=== PATIENT | female | born 1955 ===

== ENCOUNTER 2024-04-11 06:11 | Inpatient (IN) | payer MEDICARE, OTHER, SELFPAY ==
--- NOTE | 2024-03-13 08:42 | CM ---
Addendum entered by Merline Bartlett 04/09/24 08:55:
Spoke again with patient. She has arranged for someone to stay with her for four days. VN services were reviewed and she continues to select [facility].
Original Note:
Patient is scheduled for an elective L TKR on 04/11/24. Spoke with patient prior to surgery via telephone. Introduced role of Orthopedic Navigator. Patient reports that she lives alone in a one story home. There is one step to enter. She currently
functions independently. She has a rolling walker, cane, shower bench and raised toilet seat. She has had VN services through [facility]. PCP is Laurie Santana NP.
Discussed orthopedic program and post surgical plans. Reviewed anticipated length of stay and that goal is for her to return home at discharge. Also reviewed outpatient PT. Patient is in agreement with tentative plan but will not have transportation
for outpatient PT. She will need VN services and selects [facility]. She is not sure if anyone will stay with her but does have people who can stop by during the day.
Patient will complete online education.
Plan: Orthopedic Navigator will remain available to assist with the care of patient and will reassess discharge needs after surgery.
[2024-03-23 12:12] VITALS: BMI 39.4
[2024-03-23 13:56] LABS: Hematocrit 35.7 % (37.0-47.0); Hemoglobin 11.4 g/dL (12.0-16.0); Mean Corp Hgb Conc. 31.9 g/dL (33.0-37.0); Mean Corpuscular Hgb 30.1 pg (27.0-31.0); Mean Corpuscular Volume 94.2 fL (81.0-99.0); Mean Platelet Volume 10.9 fL (7.4-10.4); Platelet Count 327 10^3/uL (130-400); Red Blood Cell Count 3.79 10^6/uL (4.20-5.40); Red Cell Dist. Width 14.5 % (11.5-14.5); White Blood Cell Count 11.8 10^3/uL (4.8-10.8)
[2024-03-23 14:10] LABS: ALT (SGPT) < 10 U/L (0-35); AST (SGOT) 18 U/L (14-36); Albumin 4.1 g/dl (3.5-5.0); Alkaline Phosphatase 77 U/L (38-126); Blood Urea Nitrogen 38 mg/dl (7-17); Calcium 10.2 mg/dl (8.4-10.2); Carbon Dioxide 25 mmol/L (22-30); Chloride 102 mmol/L (98-107); Estimated Creatinine Clearance 31 ml/min; Glucose 118 mg/dl (70-99); Potassium 4.1 mmol/L (3.5-5.1); Sodium 138 mmol/L (135-145); Total Bilirubin 1.2 mg/dl (0.2-1.3); Total Protein 6.7 g/dl (6.3-8.2); eGFR 40.22
[2024-03-23 16:47] VITALS: BMI 39.4
[2024-03-24 09:41] LABS: Glycohemoglobin (HgbA1c) 6.2 % (4.0-5.6)
[2024-04-11] VITALS (10 sets, daily range): BP systolic 109–147; BP diastolic 55–80; PULSE 64; O2SAT 95; BMI 39.4
[2024-04-11 06:38] LABS: Glucose - Point of Care 123 mg/dl (70-99)
[2024-04-11] MEDS: NORMOSOL-R 1000 IV (06:45)
[2024-04-11] MEDS: TYLENOL 650 MG PO ×5 (06:45→23:31)
[2024-04-11] MEDS: CELEBREX 200 MG PO (06:45)
[2024-04-11] MEDS: NSS 1000 IV (08:53)
[2024-04-11] MEDS: ROXICODONE 5 MG PO (08:56)
--- NOTE | 2024-04-11 09:44 | PTCARENOTE ---
0930: Patient arrived to 2S. Full head to toe assessment completed. B/L LE neurovascular assessment completed. L knee aquacell intact with a small amount of drainage. IVF running per order. Call ricci within reach and bed in lowest position. Patients
son at bedside.
[2024-04-11 09:45] LABS: Glucose - Point of Care 128 mg/dl (70-99)
[2024-04-11] MEDS: NOVOLOG FLEXPEN-MODERATE RESISTANCE SC (10:23)
[2024-04-11] MEDS: ORETIC 12.5 MG PO (10:31)
[2024-04-11] MEDS: DIOVAN 80 MG PO (10:31)
[2024-04-11] MEDS: PROTONIX 40 MG PO (10:31)
[2024-04-11] MEDS: DILAUDID 0.5 MG IV (10:36)
[2024-04-11] MEDS: CLARITIN 10 MG PO (12:27)
[2024-04-11] MEDS: ZETIA 10 MG PO (12:28)
[2024-04-11 12:51] LABS: Glucose - Point of Care 165 mg/dl (70-99)
[2024-04-11] MEDS: NOVOLOG FLEXPEN-MODERATE RESISTANCE 1 UNITS SC (13:02)
[2024-04-11] MEDS: ROXICODONE 10 MG PO (13:03)
--- NOTE | 2024-04-11 15:06 | W.PN.ORTHO ---
Today's Communication / Plan
-
D/c when clinically stable.
Assessment
.
Distal Motor Intact: Yes
Dressing:
Scant areas of incisional bleeding noted - will monitor.
Assessment:
L knee OA s/p L TKA w/ Dr Mccollum 04/11/24
DVT prophylaxis - Eliquis at modified dosing, b/l venous compression devices
- Will resume home Eliquis dosing on POD 3 if hemodynamically stable
Left knee and ankle pain - ankle pain felt to be musculoskeletal as it reportedly improves w/ repositioning
- Switch PO Oxycodone to PO Dilaudid prn
- Add Gabapentin TID
- Add lidocaine cream
- Monitor
HTN - + parameters - monitor BP
Small, nonocclusive pulmonary embolism, left popliteal and peroneal vein non-occlusive thrombus, and left posterior tibial vein occlusive thrombus, 01/2022
Recurrent pulmonary embolism with associated syncope, 06/2023; on chronic Eliquis
- IVC filter placed by heme 1 week prior
- Eliquis to be resumed as stated above
- Frequent and early ambulation as tolerated. Venous compression devices at ALL times while in bed
- Plasma flow devices HIGHLY advised for outpatient use
Chronic kidney disease stage 3 - minimize nephrotoxins
Non-insulin dependent diabetes, A1c 6.2 - monitor BS
- + SSI
- May resume Mounjaro upon d/c
- Would benefit from Cefadroxil upon d/c
GERD - continue PPI therapy
Ambulatory dysfunction - on fall precautions
Chronic, multifactorial anemia - non-invasive hgb in AM
- Continue Vit B12
Hyperlipidemia
Right bundle branch block
Chronic peripheral edema
Chronic cough secondary to postnasal drip
Chronic low back pain
Hypothyroidism
History of recurrent UTIs
Osteoporosis
Insomnia
Mild leukocytosis
Obesity, BMI 39.4
Plan
.
Surgery / Date: L TKA w/ Dr Mccollum 04/11/24
DVT Prophylaxis: Other (Eliquis )
Activity:
Out of bed.
PT/OT
Discharge Plan: Home w/ VN
Subjective
.
.:
Patient examined resting in bed.
Reports significant left knee and ankle pain - pain meds to be adjusted.
Denies any other new complaints.
Vital Signs and Labs
.
Vital Signs and Labs:
Lab Results
03/23/24 12:09
03/23/24 12:09
Temp Pulse Resp BP Pulse Ox
97.3 F 66 18 143/80 95
04/11/24 11:12 04/11/24 11:12 04/11/24 11:12 04/11/24 11:12 04/11/24 11:12
Physical Exam
-
HEENT: No pallor, cyanosis, or jaundice. Throat clear.
NECK: Supple. No JVD.
RESPIRATORY: Lungs clear to auscultation.
CVS: S1, S2 normal. RRR.�
ABDOMEN: Soft, non-tender. No distension. Obese.
EXTREMITIES: Strength equal. No calf pain w/ palpation of calves, b/l dorsiflexion. Calves soft.
C T TECH: AOx3. No focal deficits. loom checker grossly intact
[2024-04-11] MEDS: DILAUDID 2 MG PO (15:57)
[2024-04-11] MEDS: NEURONTIN 200 MG PO ×2 (15:57→22:17)
[2024-04-11] MEDS: ANCEF 5 IV ×2 (15:58→23:47)
[2024-04-11] MEDS: LMX 4 1 APPLIC TOPICAL (16:39)
[2024-04-11 16:51] LABS: Glucose - Point of Care 332 mg/dl (70-99)
[2024-04-11] MEDS: NOVOLOG FLEXPEN-MODERATE RESISTANCE 7 UNITS SC (17:00)
[2024-04-11] MEDS: FLOMAX 0.400000000000000022 MG PO (20:07)
[2024-04-11] MEDS: COLACE 100 MG PO (20:07)
[2024-04-11] MEDS: SENOKOT 17.1999999999999993 MG PO (20:07)
[2024-04-11] MEDS: ELIQUIS 2.5 MG PO (20:07)
[2024-04-11] MEDS: BACTROBAN 2% OINTMENT 1 APPLIC NASAL (20:14)
[2024-04-11 21:54] LABS: Glucose - Point of Care 237 mg/dl (70-99)
[2024-04-11] MEDS: CRESTOR 40 MG PO (22:19)
[2024-04-11] MEDS: DILAUDID 4 MG PO (22:30)
[2024-04-12 03:15] VITALS: BP 109/52
[2024-04-12] MEDS: TYLENOL 650 MG PO ×3 (04:17→12:32)
[2024-04-12] MEDS: SYNTHROID 88 MCG PO (05:00)
[2024-04-12 07:20] VITALS: BP 112/57
[2024-04-12 07:59] LABS: Glucose - Point of Care 164 mg/dl (70-99)
[2024-04-12] MEDS: BACTROBAN 2% OINTMENT 1 APPLIC NASAL (08:26)
[2024-04-12] MEDS: NOVOLOG FLEXPEN 2 UNITS SC ×2 (08:27→12:29)
[2024-04-12] MEDS: NOVOLOG FLEXPEN-MODERATE RESISTANCE 1 UNITS SC (08:27)
[2024-04-12] MEDS: NEURONTIN 200 MG PO (08:30)
[2024-04-12] MEDS: ELIQUIS 2.5 MG PO (08:31)
[2024-04-12] MEDS: CLARITIN 10 MG PO (08:31)
[2024-04-12] MEDS: ORETIC PO (08:31)
[2024-04-12] MEDS: DIOVAN PO ×2 (08:31→08:39)
[2024-04-12] MEDS: PROTONIX 40 MG PO (08:31)
[2024-04-12] MEDS: COLACE 100 MG PO (08:32)
[2024-04-12] MEDS: VITAMIN B-12 2500 MCG PO (08:32)
[2024-04-12] MEDS: DILAUDID 4 MG PO ×2 (08:32→14:13)
[2024-04-12] MEDS: LMX 4 1 APPLIC TOPICAL (08:33)
[2024-04-12] MEDS: SENOKOT 17.1999999999999993 MG PO (08:33)
--- NOTE | 2024-04-12 08:48 | CM ---
Addendum entered by Merline Bartlett 04/12/24 11:34:
Patient did well with PT and OT. She did not express any concerns about discharge plans and states that she 'will be fine at home'. Again reviewed VN services.
Updated clinical sent to [facility].
Original Note:
Reviewed chart and held rounds with PT, OT and nursing. Patient admitted as planned for elective L TKR. Met with patient at bedside. Confirmed information previously obtained for assessment. Also discussed discharge plans. The plan is for patient to
return home at discharge. She will have a friend staying with her for four days. Reviewed VN services including start of care (tentatively 04/13), services to be ordered (PT, OT, SN, AUTISM MOTOR SPECIALIST) and frequency/duration of services. Options list provided and
PAC data reviewed. Patient selects [facility].
Patient has a rolling walker, raised toilet seat, shower seat and a cane at home.
VN referral was completed and sent to [facility] through [employer] with request for start of care on 04/13. Confirmation received of their ability to accept case. senior courtroom clerk to fax discharge instructions to [facility] when complete.

Patient will use [facility] pharmacy for discharge prescriptions.
[2024-04-12 10:31] VITALS: BP 107/55; PULSE 80; O2SAT 98
[2024-04-12 10:40] VITALS: BP 107/55; PULSE 80; O2SAT 98
[2024-04-12 11:10] VITALS: BP 106/70
[2024-04-12 11:35] LABS: Glucose - Point of Care 213 mg/dl (70-99)
[2024-04-12] MEDS: NOVOLOG FLEXPEN-MODERATE RESISTANCE 3 UNITS SC (12:28)
[2024-04-12] MEDS: ZETIA 10 MG PO (12:32)
[2024-04-12 12:33] VITALS: BP 106/70
--- NOTE | 2024-04-12 13:31 | W.PN.ORTHO ---
Today's Communication / Plan
-
D/c today since clinically stable, did well w/ PT and OT.
Assessment
.
Distal Motor Intact: Yes
Dressing:
Scant amounts of old incisional bleeding in center of incision. No change since yesterdays assessment.
Assessment:
L knee OA s/p L TKA w/ Dr Mccollum 04/11/24
DVT prophylaxis - Eliquis at modified dosing, b/l venous compression devices
- Will resume home Eliquis dosing on POD 3 since hemodynamically stable
Left knee and ankle pain - ankle pain felt to be musculoskeletal as it reportedly improves w/ repositioning - no complaints of ankle pain today
- Switch PO Oxycodone to PO Dilaudid prn
- Add Gabapentin TID
- Add lidocaine cream
- Pain better tolerated by POD 1, did work overall well w/ therapy
HTN - + parameters - BPs stable
Small, nonocclusive pulmonary embolism, left popliteal and peroneal vein non-occlusive thrombus, and left posterior tibial vein occlusive thrombus, 01/2022
Recurrent pulmonary embolism with associated syncope, 06/2023; on chronic Eliquis
- IVC filter placed by [facility] 1 week prior
- Eliquis to be resumed as stated above
- Frequent and early ambulation as tolerated. Venous compression devices were worn at ALL times while in bed during admission
- Plasma flow devices HIGHLY advised for outpatient use
Chronic kidney disease stage 3 - continue to minimize nephrotoxins
Non-insulin dependent diabetes, A1c 6.2 - BS readings initially elevated 2* surgical stress, IV steroids in OR
- BS readings expected to improve, however, w/ continuation of diabetic carb controlled diet and resumption of Mounjaro (held against medical advise for past 3 weeks; will resume per her admission)
- +SSI and 2 units standing Novolog AC during admission
- Would benefit from Cefadroxil upon d/c
GERD - continue PPI therapy
Ambulatory dysfunction - on fall precautions
Chronic, multifactorial anemia - non-invasive hgb 9.3
- Continue Vit B12
- Asymptomatic, hemodynamically stable
Hyperlipidemia
Right bundle branch block
Chronic peripheral edema
Chronic cough secondary to postnasal drip
Chronic low back pain
Hypothyroidism
History of recurrent UTIs
Osteoporosis
Insomnia
Mild leukocytosis
Obesity, BMI 39.4
Plan
.
Surgery / Date: L TKA w/ Dr Mccollum 04/11/24
DVT Prophylaxis: Other (Eliquis )
Activity:
Out of bed.
PT/OT
Discharge Plan: Home w/ VN
Subjective
.
.:
Patient examined resting in her chair.
Reporting L knee pain but is more tolerable in comparison to yesterday. Med adjustments helping overall and pt able to work through PT/OT. No other pain reported.
Denies any other new significant complaints.
Eager for potential d/c today.
Vital Signs and Labs
.
Vital Signs and Labs:
Lab Results
03/23/24 12:09
03/23/24 12:09
Temp Pulse Resp BP Pulse Ox
97.6 F 70 18 106/70 94
04/12/24 11:10 04/12/24 11:10 04/12/24 11:10 04/12/24 11:10 04/12/24 11:10
Non-invasive Hgb result: 9.3
Physical Exam
-
HEENT: No pallor, cyanosis, or jaundice. Throat clear.
NECK: Supple. No JVD.
RESPIRATORY: Lungs clear to auscultation.
CVS: S1, S2 normal. RRR.�
ABDOMEN: Soft, non-tender. No distension.
EXTREMITIES: Mild post-op L knee edema. Strength equal. No calf pain with palpation/dorsiflexion. Calves soft.
SAP MANAGER: AOx3. No focal deficits. bottom turner grossly intact
--- NOTE | 2024-04-12 13:51 | W.DS.TRANS ---
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
-
Discharge Instructions:
Sleep Apnea Risk Intermediate
Discharge Diagnosis/Procedures L knee OA s/p L TKA w/ Dr Mccollum 04/11/24
Diet Diabetic, Carb Controlled
Activity As tolerated,With Walker
Driving Restrictions Not until seen by your Dr
Bathing Restrictions OK to Shower
Other Services PT,VN,OT
Wound Care Dressing to be removed 1 week post-surgery.
[place] to be removed at 2 week follow-up with
surgeon's office.
Instructions:
Stand-Alone Forms: Total Hip/Knee Replacement D/C
Changes to Home Medications: Yes
Discharge Medications:
DC Medications w/original date entered in [employer]
apixaban 5 mg tablet (Eliquis) 5 mg PO BID Blood Clot Prevention/Tx 03/20/24
levothyroxine 88 mcg tablet 88 mcg PO DAILY Thyroid 03/20/24
magnesium 200 mg tablet 400 mg PO DAILY Supplement 03/20/24
mecobalamin (vitamin B12) 2,500 mcg chewable tablet 2,500 mcg PO DAILY Supplement 03/20/24
metoprolol succinate 25 mg tablet,extended release 24 hr 25 mg PO DAILY Blood Pressure 03/20/24
calcium carbonate 600 mg-vitamin D3 5 mcg (200 unit) tablet 2 tab PO DAILY Supplement 03/21/24
ezetimibe 10 mg tablet 10 mg PO NOON High Cholesterol 03/21/24
loratadine 10 mg tablet (Claritin) 10 mg PO DAILY Allergies 03/21/24
rosuvastatin 40 mg tablet 40 mg PO HS High Cholesterol 03/21/24
benzonatate 100 mg capsule 100 mg PO TID PRN cough 03/23/24
fluticasone propionate 50 mcg/actuation nasal spray,suspension 2 spray intranasal DAILY Allergies 03/23/24
guaifenesin 600 mg tablet, extended release 12 hr (Mucinex) 600 mg PO BIDPRN PRN mucus congestion 03/23/24
mupirocin 2 % topical ointment 1 applic intranasal BID #1 tube 03/23/24
pantoprazole 40 mg tablet,delayed release 40 mg PO DAILY Gastrointestinal Issue 03/23/24
Saccharomyces boulardii 250 mg capsule (Florastor) 250 mg PO DAILY #7 caps 04/12/24
acetaminophen 650 mg tablet,extended release 1,300 mg (2 x 650 mg) PO Q8H #30 tabs 04/12/24
apixaban 2.5 mg tablet (Eliquis) 2.5 mg PO BID #3 tabs 04/12/24
cefadroxil 500 mg capsule 500 mg PO DAILY #7 caps 04/12/24
docusate sodium 100 mg capsule 100 mg PO BID #30 caps 04/12/24
gabapentin 100 mg capsule 200 mg (2 x 100 mg) PO TID Neuropathic pain #30 caps 04/12/24
hydromorphone 2 mg tablet 2 - 4 mg (1 - 2 x 2 mg) PO Q4H PRN moderate-severe pain #35 tabs 04/12/24
lidocaine 4 % topical patch 2 patch topical DAILY #30 ea 04/12/24
ondansetron HCl 4 mg tablet 4 mg PO Q6H PRN nausea and vomiting #30 tabs 04/12/24
sennosides 8.6 mg tablet (Senna Laxative) 17.2 mg (2 x 8.6 mg) PO BID #30 tabs 04/12/24
tirzepatide 2.5 mg/0.5 mL subcutaneous pen injector (Mounjaro) 2.5 mg (0.5 mL) SC QWEEK Diabetes #2 mL 04/12/24
valsartan 80 mg-hydrochlorothiazide 12.5 mg tablet 1 tab PO DAILY Blood Pressure #0 tabs 04/12/24
Home Medication Changes
Saccharomyces boulardii 250 mg capsule (Florastor) 250 mg PO DAILY #7 caps 04/12/24
acetaminophen 650 mg tablet,extended release 1,300 mg (2 x 650 mg) PO Q8H #30 tabs 04/12/24
apixaban 2.5 mg tablet (Eliquis) 2.5 mg PO BID #3 tabs 04/12/24 - until POD 3
cefadroxil 500 mg capsule 500 mg PO DAILY #7 caps 04/12/24
docusate sodium 100 mg capsule 100 mg PO BID #30 caps 04/12/24
gabapentin 100 mg capsule 200 mg (2 x 100 mg) PO TID Neuropathic pain #30 caps 04/12/24
hydromorphone 2 mg tablet 2 - 4 mg (1 - 2 x 2 mg) PO Q4H PRN moderate-severe pain #35 tabs 04/12/24
lidocaine 4 % topical patch 2 patch topical DAILY #30 ea 04/12/24
ondansetron HCl 4 mg tablet 4 mg PO Q6H PRN nausea and vomiting #30 tabs 04/12/24
sennosides 8.6 mg tablet (Senna Laxative) 17.2 mg (2 x 8.6 mg) PO BID #30 tabs 04/12/24
Pending Results: No
== END 2024-04-12 15:10 | disposition home health service (06) | DRG 470 ==
LOC: 2 SOUTH 06:11
PROVIDERS: ADMITTING PHYSICIAN Orthopaedic Surgery; FAMILY PHYSICIAN Nurse Practitioner Family
PROC: 0SRD0J9 Replacement of Left Knee Joint with Synthetic Substitute, Cemented, Open Approach (ICD-10-PCS; 2024-04-11)
DX: M17.12 Unilateral primary osteoarthritis, left knee (principal); E11.22 Type 2 diabetes mellitus with diabetic chronic kidney disease; E03.9 Hypothyroidism, unspecified; D64.9 Anemia, unspecified; N18.30 Chronic kidney disease, stage 3 unspecified; I12.9 Hypertensive chronic kidney disease with stage 1 through stage 4 chronic kidney disease, or unspecified chronic kidney disease; E66.9 Obesity, unspecified; Z68.39 Body mass index [BMI] 39.0-39.9, adult; E78.5 Hyperlipidemia, unspecified; I45.10 Unspecified right bundle-branch block; K21.9 Gastro-esophageal reflux disease without esophagitis; G89.29 Other chronic pain; M54.50 Low back pain, unspecified; M81.0 Age-related osteoporosis without current pathological fracture; G47.00 Insomnia, unspecified; R60.0 Localized edema; R09.82 Postnasal drip; Z79.01 Long term (current) use of anticoagulants; Z79.85 Long-term (current) use of injectable non-insulin antidiabetic drugs; Z79.890 Hormone replacement therapy; Z79.899 Other long term (current) drug therapy; Z86.711 Personal history of pulmonary embolism; Z86.718 Personal history of other venous thrombosis and embolism; Z87.440 Personal history of urinary (tract) infections; Z87.81 Personal history of (healed) traumatic fracture; Z90.49 Acquired absence of other specified parts of digestive tract; Z88.5 Allergy status to narcotic agent
CPT/HCPCS: 36415; 73560; 80053; 82962; 83036; 85027; 86850; 86900; 86901; 87070; 97110; 97116; 97163; 97167; 97530; 97535; C1713; C1776

== ENCOUNTER 2025-05-01 06:07 | Inpatient (IN) | payer MEDICARE, OTHER, SELFPAY ==
[2025-04-15 11:35] LABS: Hematocrit 39.2 % (37.0-47.0); Hemoglobin 12.8 g/dL (12.0-16.0); Mean Corp Hgb Conc. 32.7 g/dL (33.0-37.0); Mean Corpuscular Volume 89.9 fL (81.0-99.0); Platelet Count 215 10^3/uL (130-400); Red Cell Dist. Width 14.1 % (11.5-14.5)
[2025-04-15 12:06] LABS: Glycohemoglobin (HgbA1c) 5.5 % (4.0-5.6)
[2025-04-15 12:23] LABS: ALT (SGPT) 12 U/L (0-35); AST (SGOT) 18 U/L (14-36); Albumin 4.5 g/dl (3.5-5.0); Alkaline Phosphatase 80 U/L (38-126); Blood Urea Nitrogen 49 mg/dl (7-17); Calcium 10.3 mg/dl (8.4-10.2); Carbon Dioxide 23 mmol/L (22-30); Chloride 109 mmol/L (98-107); Glucose 132 mg/dl (70-99); Potassium 4.5 mmol/L (3.5-5.1); Sodium 142 mmol/L (135-145); Total Protein 7.1 g/dl (6.3-8.2); eGFR 53.39
[2025-04-15 14:20] VITALS: BMI 23.0
[2025-04-15 14:58] VITALS: BMI 23.0
--- NOTE | 2025-04-15 14:59 | HPS.HSE ---
Family Physician
-
Family Physician: Laurie Santana
Chief Complaint
-
Advanced primary osteoarthritis of the right knee.
History of Present Illness
The patient is a 70-year-old female presenting today for advanced primary osteoarthritis of the right knee. The patient previously underwent an uncomplicated left total knee arthroplasty in March [address] Vivek Mccollum. She returns to
[facility] today with complaints of significant right knee pain secondary to her osteoarthritis. She notes that her current right knee pain is greatly interfering with her activities of daily living and is overall impacting
her quality of life. She has tried and failed multiple conservative treatment measures in the past for her right knee pain. These conservative treatment measures include physical therapy, self-directed therapeutic exercises, activity modification,
attempted weight loss, medical management with Tylenol and Tramadol as needed, injection therapy, bracing, and the application of ice and/or heat. Recent x-ray findings of the right knee confirmed advanced joint space narrowing with osteophyte
formation and subchondral sclerosis consistent with right knee osteoarthritis. She was determined to be in need of a right total knee arthroplasty. She denies any current complaints today such as chest pain, shortness of breath, palpitations,
nausea, vomiting, diarrhea, lightheadedness, dizziness, sore throat, or fever.
Medical History
Past Medical History
Past Medical History: Reports Other
Additional Past Medical History:
1. Osteoarthritis, status post left total knee arthroplasty, 03/2024, by Dr. Vivek Mccollum.
2. Hypertension.
3. Hyperlipidemia.
4. PVCs, asymptomatic.
5. Right bundle branch block.
6. Marked asymptomatic sinus bradycardia, Metoprolol recently stopped by Cardiology.
7. Chronic venous insufficiency.
8. Small, nonocclusive pulmonary embolism, left popliteal and peroneal vein non-occlusive thrombus, and left posterior tibial vein occlusive thrombus, 01/2022. Recurrent pulmonary embolism with associated syncope, 06/2023; on chronic Eliquis.
9. Chronic kidney disease stage 3.
10. Non-insulin dependent diabetes, A1c 5.5.
11. GERD.
12. Ambulatory dysfunction.
13. Lumbar degenerative disc disease with radiculopathy.
14. Chronic pain syndrome with opioid dependence.
15. Hypothyroidism.
16. History of recurrent UTIs.
17. History of multifactorial anemia.
18. Osteopenia.
19. Insomnia.
20. Mild hypercalcemia.
Past Surgical History: Reports Other
Additional Past Surgical History:
1. Left total knee arthroplasty, 03/2024, by Dr. Vivek Mccollum.
2. Cholecystectomy.
3. Right humerus fracture repair.
4. Colonoscopy x3.
5. Endoscopy.
Social History
Tobacco: Non-smoker
Alcohol: Other (Social use reported)
Living: Alone (in a one-story ortiz. Her 2 friends will reportedly be helping her post-operatively. )
Family History
Family History: Not pertinent
Allergies / Home Medications
Allergy/Medication List:
HOME MEDICATIONS:
1. Tylenol arthritis 1300 mg p.o. every 8 hours as needed.
2. Eliquis 5 mg p.o. twice a day.
3. Calcium and vitamin D two tablets p.o. daily.
4. Flonase two sprays intranasal daily as needed.
5. Mucinex 600 mg p.o. twice a day as needed.
6. Levothyroxine 88 mcg p.o. daily.
7. Loratadine 10 mg p.o. daily as needed.
8. Magnesium 400 mg p.o. daily.
9. Vitamin B12 2500 mcg p.o. daily.
10. Pantoprazole 40 mg p.o. daily.
11. Rosuvastatin 20 mg p.o. at bedtime.
12. Mounjaro 2.5 mg subcutaneous weekly.
13. Tramadol 50 mg p.o. daily as needed.
ALLERGIES: Adhesive tape. Morphine.
Review of Systems
-
A 12 point ROS was completed and negative except as noted: Yes
Physical Exam
Vital Signs
Blood pressure 136/74. Heart rate 51. Respirations 18. Pulse ox 96% on room air.
Height 5 feet, 10 inches. Weight 72.7 kg. BMI 23.0.
Physical Exam
General: Well Developed, Well Nourished and No Apparent Distress
HEENT: NormoCephalic, Moist mucous membranes, Atraumatic and PERRLA
Respiratory: Clear
Cardiac: Bradycardia
GI: Soft, Non Tender and Non Distended
Musculoskeletal: Other (Right knee and lower extremity: Neutral alignment. Trace effusion. ROM 0-140. Tenderness to palpation over medial and lateral joint line. No tenderness to palpation over patella tendon or quadriceps tendon. Able to preform
straight leg raise. Venous stasis noted bilaterally. )
Skin: Warm and Dry
Neuro: AO x 3 and Nonfocal/grossly intact
Laboratory Results
-
04/15/25 11:01
04/15/25 11:01
Laboratory Results
Total Bilirubin 1.3 mg/dl (0.2-1.3) 04/15/25 11:01
AST 18 U/L (14-36) 04/15/25 11:01
ALT 12 U/L (0-35) 04/15/25 11:01
Alkaline Phosphatase 80 U/L (38-126) 04/15/25 11:01
MRSA screen negative.
EKG provided by Cardiology.
Impression/Plan
-
CLEARANCES:
1. Primary medical, [facility] [place], pending.
Primary medical phone number: [phone].
2. Cardiology, Dr. Yang Cross, cleared.
3. Dental waived.
IMPRESSION/PLAN:
1. Advanced primary osteoarthritis of the right knee in need of a right total knee arthroplasty by Dr. Vivek Mccollum on 05/01/2025. The benefits and risks of the procedure have been explained to the patient. The patient understands these risks and
wishes to proceed.
2. DVT prophylaxis: Eliquis at modified dosing with bilateral venous compression devices. She was made aware to hold her Eliquis three days prior to her procedure. Given her high risk for recurrent blood clots, her sponge packer has placed an IVC
filter on 04/10/2025. Eliquis 2.5 mg p.o. twice a day will be started the evening of her surgery with a transition back to her home Eliquis dosing on post-operative day 3 as long as she remains hemodynamically stable. Plasma flow devices were highly
encouraged to be used in the outpatient setting upon discharge due to her history of previous blood clots.
3. Ambulatory dysfunction: The patient will be placed on fall precautions post-operatively.
4. History of multifactorial anemia: Fortunately, her hemoglobin is stable prior to her procedure while on oral Vitamin B12 supplementation. The patient's hemoglobin will be monitored closely during admission. She was advised to continue her vitamin
B12 supplementation without interruption.
5. Pain management: We will utilize Dilaudid as needed for moderate-severe post-operative pain. We will also include Gabapentin 200 mg p.o. three times a day for neuropathic pain. The patient tolerated this pain medication regimen well after her
prior left total knee arthroplasty.
6. Post-operative bowel regimen: The patient was advised to purchase Colace and Senokot for post-operative use. These will be taken twice a day post-surgery, regardless of oral intake, until she is having regular bowel movements. Adequate hydration,
early mobility as tolerated, and the minimization of opioids were also discussed akila-operatively.
7. Elevated infection risk: The patient is considered to be at an increased risk of post-surgical infection due to her history of diabetes. She will be prescribed Cefadroxil upon discharge for further joint prophylaxis. Probiotic use will be highly
encouraged while on this antibiotic.
Patient's phone number: [phone].
Patient's contact (Rosita Wong - Daughter): [phone].
[2025-05-01] VITALS (28 sets, daily range): BP systolic 90–158; BP diastolic 45–85; O2SAT 98
[2025-05-01 06:23] LABS: Glucose - Point of Care 103 mg/dl (70-99)
[2025-05-01] MEDS: TYLENOL 650 MG PO ×5 (06:25→22:22)
[2025-05-01] MEDS: NORMOSOL-R/PLASMALYTE-A 1000 IV ×2 (06:25→08:44)
[2025-05-01] MEDS: CELEBREX 200 MG PO (06:25)
--- NOTE | 2025-05-01 07:16 | W.PN.ORTHO ---
Today's Communication / Plan
-
d/c when stable
Assessment
.
Dressing:
Clean, dry and intact.
Assessment:
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
Ambulatory dysfunction-fall precautions
Plan
.
Surgery / Date: R TKA 05/01/25 Dr. Mccollum
DVT Prophylaxis: Other (Eliquis)
Activity:
Out of bed.
PT/OT
Discharge Plan: Home w/ VN
Vital Signs and Labs
.
Vital Signs and Labs:
Lab Results
04/15/25 11:01
04/15/25 11:01
Temp Pulse Resp BP Pulse Ox
98.4 F 74 16 153/67 99
05/01/25 06:20 05/01/25 06:20 05/01/25 06:20 05/01/25 06:20 05/01/25 06:20
[2025-05-01] MEDS: DILAUDID 2 MG PO (09:41)
[2025-05-01] MEDS: PROTONIX 40 MG PO (10:23)
[2025-05-01] MEDS: NEURONTIN 200 MG PO ×3 (10:24→22:21)
[2025-05-01] MEDS: ULTRAM 50 MG PO ×2 (10:24→20:34)
--- NOTE | 2025-05-01 10:41 | W.DS.TRANS ---
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
-
Discharge Instructions:
Sleep Apnea Risk Low
Discharge Diagnosis/Procedures R TKA Dr. Mccollum 05/01/25
Diet Diabetic, Carb Controlled
Activity With Walker
Driving Restrictions No driving
Bathing Restrictions OK to Shower
Other Services PT,VN
Instructions:
Stand-Alone Forms: Total Hip/Knee Replacement D/C
Changes to Home Medications: Yes
Discharge Medications:
DC Medications w/original date entered in [employer]
levothyroxine 88 mcg tablet 88 mcg PO DAILY Thyroid 03/20/24
magnesium 200 mg tablet 400 mg PO DAILY Supplement 03/20/24
mecobalamin (vitamin B12) 2,500 mcg chewable tablet 2,500 mcg PO DAILY Supplement 03/20/24
loratadine 10 mg tablet (Claritin) 10 mg PO DAILYPRN PRN ALLERGY 03/21/24
fluticasone propionate 50 mcg/actuation nasal spray,suspension 2 spray intranasal DAILYPRN PRN SINUS CONGESTION 03/23/24
guaifenesin 600 mg tablet, extended release 12 hr (Mucinex) 600 mg PO BIDPRN PRN mucus congestion 03/23/24
pantoprazole 40 mg tablet,delayed release 40 mg PO DAILY Gastrointestinal Issue 03/23/24
tirzepatide 2.5 mg/0.5 mL subcutaneous pen injector (Mounjaro) 2.5 mg (0.5 mL) SC QWEEK Diabetes #2 mL 04/12/24
calcium 600 mg (as carbonate)-vitamin D3 5 mcg (200 unit) tablet (Calcium 600 + D(3)) 2 tab PO DAILY 04/12/25
rosuvastatin 20 mg tablet 20 mg PO HS 04/12/25
cefadroxil 500 mg capsule 500 mg PO DAILY #7 caps 04/16/25
gabapentin 100 mg capsule 200 mg (2 x 100 mg) PO TID neuropathic pain #30 caps 04/16/25
hydromorphone 2 mg tablet (Dilaudid) 2 - 4 mg (1 - 2 x 2 mg) PO Q6H PRN moderate-severe pain #30 tabs 04/16/25
ondansetron HCl 4 mg tablet 4 mg PO Q6H PRN nausea and vomiting #30 tabs 04/16/25
acetaminophen 650 mg tablet,extended release 1,300 mg (2 x 650 mg) PO TID #0 tabs 05/01/25
apixaban 5 mg tablet (Eliquis) 2.5 mg (1/2 x 5 mg) PO BID Blood clot prevention/tx #0 tabs 05/01/25
docusate sodium 100 mg capsule (Colace) 100 mg PO BID stool softner #1 cap 05/01/25
magnesium hydroxide 400 mg/5 mL oral suspension (Milk of Magnesia) 30 ml PO HS PRN constipation #1 mL 05/01/25
sennosides 8.6 mg tablet (Senokot) 17.2 mg (2 x 8.6 mg) PO BID laxative #2 tabs 05/01/25
tramadol 50 mg tablet 50 mg PO PRN PRN mild pain #0 tabs 05/01/25
valsartan-hydrochlorothiazide 1 tab PO DAILY ##0 05/01/25
Home Medication Changes
cefadroxil 500 mg capsule 500 mg PO DAILY #7 caps 04/16/25
gabapentin 100 mg capsule 200 mg (2 x 100 mg) PO TID neuropathic pain #30 caps 04/16/25
hydromorphone 2 mg tablet (Dilaudid) 2 - 4 mg (1 - 2 x 2 mg) PO Q6H PRN moderate-severe pain #30 tabs 04/16/25
ondansetron HCl 4 mg tablet 4 mg PO Q6H PRN nausea and vomiting #30 tabs 04/16/25
acetaminophen 650 mg tablet,extended release 1,300 mg (2 x 650 mg) PO TID #0 tabs 05/01/25
apixaban 5 mg tablet (Eliquis) 2.5 mg (1/2 x 5 mg) PO BID Blood clot prevention/tx #0 tabs 05/01/25
docusate sodium 100 mg capsule (Colace) 100 mg PO BID stool softner #1 cap 05/01/25
magnesium hydroxide 400 mg/5 mL oral suspension (Milk of Magnesia) 30 ml PO HS PRN constipation #1 mL 05/01/25
sennosides 8.6 mg tablet (Senokot) 17.2 mg (2 x 8.6 mg) PO BID laxative #2 tabs 05/01/25
tramadol 50 mg tablet 50 mg PO PRN PRN mild pain #0 tabs 05/01/25
valsartan-hydrochlorothiazide 1 tab PO DAILY ##0 05/01/25
Pending Results: No
--- NOTE | 2025-05-01 10:42 | PTCARENOTE ---
[facility] Admission questions answered. Right knee dressing with small sanguineous drainage. Pt c/o 06/26 pain in right knee. Tramadol and gabapentin administered. Thigh high teds and foot pumps on pt. Pt oriented to room and
call ricci. Bed locked and in lowest position. Care ongoing.
[2025-05-01] MEDS: DILAUDID 4 MG PO ×2 (11:13→22:22)
[2025-05-01] MEDS: ANCEF 5 IV ×2 (14:57→22:21)
[2025-05-01] MEDS: ELIQUIS 2.5 MG PO ×2 (18:09→20:35)
[2025-05-01] MEDS: DECADRON 4 MG IV (20:34)
[2025-05-01] MEDS: COLACE 100 MG PO (20:34)
[2025-05-01] MEDS: SENOKOT 17.2 MG PO (20:35)
[2025-05-01] MEDS: BACTROBAN 2% OINTMENT 1 APPLIC NASAL (22:21)
[2025-05-01] MEDS: CRESTOR 20 MG PO (22:22)
[2025-05-02] MEDS: TYLENOL PO (01:30)
[2025-05-02 03:00] VITALS: BP 123/63
[2025-05-02] MEDS: SYNTHROID 88 MCG PO (05:30)
[2025-05-02] MEDS: TYLENOL 650 MG PO ×3 (05:30→15:12)
--- NOTE | 2025-05-02 06:28 | W.PN.UPDATE ---
Update Note
Progress Note Update
RN states patient c/o burning sensation and feels like she is getting UTI, having difficulty urinating, RN Cath x2 will order UA.
[2025-05-02 07:00] VITALS: BP 102/57
[2025-05-02 07:26] LABS: Urine Character Clear (Clear)
[2025-05-02] MEDS: DECADRON 4 MG IV (07:47)
[2025-05-02] MEDS: BACTROBAN 2% OINTMENT 1 APPLIC NASAL (07:47)
[2025-05-02] MEDS: MAG-TAB SR 84 MG PO (07:48)
[2025-05-02] MEDS: ELIQUIS 2.5 MG PO (07:48)
[2025-05-02] MEDS: COLACE 100 MG PO (07:48)
[2025-05-02] MEDS: SENOKOT 17.2 MG PO (07:49)
[2025-05-02] MEDS: ULTRAM 50 MG PO (07:49)
[2025-05-02] MEDS: PROTONIX 40 MG PO (07:49)
[2025-05-02] MEDS: NEURONTIN 200 MG PO ×2 (07:49→15:51)
--- NOTE | 2025-05-02 07:52 | W.PN.UPDATE ---
Update Note
Progress Note Update
pt sleeping soundly so I did not awaken her on rounds.
[2025-05-02 07:55] LABS: Urine Squamous Cell 0-2 /LPF (Few)
[2025-05-02 07:56] LABS: Urine Red Blood Cell 0-2 /HPF (0-2); Urine White Cell 0-2 /HPF (0-5)
--- NOTE | 2025-05-02 09:01 | CM ---
Addendum entered by Dee Crouch RN 05/02/25 12:25:
CM sent written home care script to [facility] via [facility].
Addendum entered by Dee Crouch RN 05/02/25 10:08:
Patient has been accepted by [facility]. They are requesting a written prescription for home care services.
Original Note:
CM met with patient in room. Patient lives alone, but her friend will be available to stay with her. Patient is active with her PCP and has medication coverage.
Patient stated that she would prefer [facility] for home care services. CM sent referrlal via [facility] to [facility].
PLAN: [facility]
Fax [phone]
[2025-05-02 09:05] VITALS: BP 108/63; BP 93/51; PULSE 66
[2025-05-02 11:00] VITALS: BP 128/68
--- NOTE | 2025-05-02 11:51 | W.PN.ORTHO ---
Today's Communication / Plan
-
d/c
Assessment
.
Distal Motor Intact: Yes
Dressing:
Clean, dry and intact.
Assessment:
Dysuria 05/01/25-u/a order by house provider-highly unlikely given akila-op IV antibiotics--u/a clear
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
Ambulatory dysfunction-fall precautions
Plan
.
Surgery / Date: R TKA 05/01/25 Dr. Mccollum
DVT Prophylaxis: Other (Eliquis w/ SCD)
Activity:
Out of bed.
PT/OT
Discharge Plan: Home w/ VN
Subjective
.
.:
Patient resting comfortably.
Vital Signs and Labs
.
Vital Signs and Labs:
Lab Results
04/15/25 11:01
04/15/25 11:01
Temp Pulse Resp BP Pulse Ox
97.8 F 71 16 128/68 97
05/02/25 11:00 05/02/25 11:00 05/02/25 11:00 05/02/25 11:00 05/02/25 11:00
Non-invasive Hgb result: 11.8
Physical Exam
-
HEENT: No pallor, cyanosis, or jaundice. Throat clear.
NECK: Supple. No JVD.
RESPIRATORY: Lungs clear to auscultation.
CVS: S1, S2 normal. RRR.� No murmur, rub or gallop.
ABDOMEN: Soft, non-tender. No distension. BS+/normal.
EXTREMITIES: strength equal, no calf pain with palpation
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 No focal deficits. 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
[2025-05-02 11:53] VITALS: BP 133/72; PULSE 75
[2025-05-02] MEDS: FLOMAX 0.4 MG PO (12:55)
[2025-05-02 15:00] VITALS: BP 141/66
== END 2025-05-02 17:20 | disposition home health service (06) | DRG 470 ==
LOC: 2 SOUTH 06:07
PROVIDERS: Nurse Practitioner Gerontology; ADMITTING PHYSICIAN Orthopaedic Surgery; FAMILY PHYSICIAN Nurse Practitioner Family
PROC: 0SRC0J9 Replacement of Right Knee Joint with Synthetic Substitute, Cemented, Open Approach (ICD-10-PCS; 2025-05-02)
DX: M17.11 Unilateral primary osteoarthritis, right knee (principal); F11.20 Opioid dependence, uncomplicated; Z79.01 Long term (current) use of anticoagulants; Z86.718 Personal history of other venous thrombosis and embolism; N18.30 Chronic kidney disease, stage 3 unspecified; I12.9 Hypertensive chronic kidney disease with stage 1 through stage 4 chronic kidney disease, or unspecified chronic kidney disease; E78.5 Hyperlipidemia, unspecified; I49.3 Ventricular premature depolarization; I45.10 Unspecified right bundle-branch block; I87.2 Venous insufficiency (chronic) (peripheral); E11.22 Type 2 diabetes mellitus with diabetic chronic kidney disease; K21.9 Gastro-esophageal reflux disease without esophagitis; M51.16 Intervertebral disc disorders with radiculopathy, lumbar region; G89.4 Chronic pain syndrome; E03.9 Hypothyroidism, unspecified; Z87.440 Personal history of urinary (tract) infections; M85.80 Other specified disorders of bone density and structure, unspecified site; E83.52 Hypercalcemia; Z79.84 Long term (current) use of oral hypoglycemic drugs; Z79.890 Hormone replacement therapy
CPT/HCPCS: 36415; 73560; 80053; 81003; 81015; 82962; 83036; 85027; 87070; 93005; 97110; 97116; 97163; 97167; 97530; 97535; C1713; C1776